=== PATIENT | female | born 1975 | race Caucasian/White ===

== ENCOUNTER 2021-06-13 15:20 | Outpatient (REF) | payer BC, SELFPAY ==
[2021-06-15 17:02] LABS: COVID-19 RT-PCR UVMMC Result Negative (Negative)
== END 2021-06-13 15:21 | disposition home or self-care (01) ==
LOC: LBN 15:20
PROVIDERS: Visit Provider Nurse Practitioner Family
DX: Z20.822 Contact with and (suspected) exposure to COVID-19 (principal); J06.9 Acute upper respiratory infection, unspecified
CPT/HCPCS: U0003

== ENCOUNTER 2024-09-03 00:21 | Outpatient (CLI) | payer OTHER, SELFPAY ==
--- OUTSIDE RECORDS SUMMARY | 2024-09-03 00:23 | XMS_ITS | Clinical Summary ---
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
--- OUTSIDE RECORDS SUMMARY | 2024-09-03 00:23 | XMS_ITS | Encounter Summary ---
Author Organization [facility] Address [address] [place] [address] Care Team Providers Care Gizzard Skin Remover Name Role Phone Unavailable Primary Care Provider Unavailabl e Encounter Details Date Type Department Care Team (Late st Contact Info) Description 06/14/2021 Lab Requisition [facility] Pathology & Laboratory Medicine - [facility] [address] [place] [address] Outr Resulting Lab, Provider Social History Tobacco Use Types Packs/Day Years Used Date Smoking Tobacco: Never Assessed Comments Unknown Sex and Gender Information Value Date Recorded Sex Assigned at Not on file Legal Sex Female 12:21 EST Gender Identity Not on file Sexual Orientation Not on file documented as of this encounter Plan of Treatment Not on file documented as of this encounter Procedures Procedure Name Priority Date/Time Associated Diagnosis Comments [facility] Today 06/13/2021 10:25 EST COVID-19 TESTING Routine 06/13/2021 10:2 5 EST documented in this encounter Results * COVID-19 TEST [facility] PCR (06/13/2021 10:25 EST) Swab 06/13/2021 10:2 5 EST 06/14/2021 16:46 EST us Provider Outr Resulting Lab MICROBIOLOGY - GENER AL ORDERABLES Final Result [facility] [address] [place] [address] * COVID-19 TESTING (06/13/2021 10:25 EST) COVID-19 rt-PCR Result Negative Negative 06/15/2021 16:56 EST [facility] Comment: This test has not been FDA cleared or approved. This test has been authorized by FDA under an EUA for use by authorized laboratories. This test has been authorized only for detection of nucleic acid from 2019-nCoV, not for any other viruses or pathogens. This test is only authorized for the duration of the declaration that circumstances exist justifying the authorization of emergency use of in vitro diagnostic tests for detection and/or diagnosis of 2019-nCoV under section 564(b)(1) of Act, 21 U.S.C ?? 360bbb-3(b) (1), unless the authorization is terminated or revoked sooner. Negative results do not preclude 2019-nCoV infection and should not be used as the sole basis for treatment or other patient management decisions. Negative results must be combined with clinical observations, patient history, and epidemiological information. This test was developed and its performance characteristics determined by [facility]. It has not been cleared or approved by the US Food and Drug Administration. FDA does not require this test to go through premarket FDA review. This test is used for clinical purposes. It should not be regarded as investigational or for research. This laboratory is certified under the Clinical Laboratory Improvement Amendments (CLIA) as qualified to perform high complexity clinical laboratory testing. This test is based on the CDC COVID-19 Emergency Use Authorization (EUA) assay, with minor modification as defined by the FDA Performed on the Poll Everywhereo 7 Pro RT-PCR System. Performing Lab [facility] 06/15/2021 16:56 EST [facility] Swab 06/13/2021 10:2 5 EST 06/14/2021 16:46 EST us Provider Outr Resulting Lab MICROBIOLOGY - GENER AL ORDERABLES Final Result [facility] [address] [place] [address] documented in this encounter Visit Diagnoses Not on filedocumented in this encounter
--- OUTSIDE RECORDS SUMMARY | 2024-09-03 00:23 | XMS_ITS | Referral Summary ---
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
--- NOTE | 2024-09-03 13:04 | DI.MAMMO_ITS ---
Exam(s) MAMMO SCREENING EXAM: MAMMO SCREENING CLINICAL HISTORY: Screening, Z12.31 TECHNIQUE: Mammograms were interpreted according to the usual protocol including computer analysis w [employer] CAD system, tomosynthesis and C-view imaging. COMPARISON: 2018 and 2019 FINDINGS: The breasts are composed of mainly fatty density , Breast Density category A. No suspicious masses or suspicious microcalcifications are seen. No skin thickening or abnormal axillary lymph nodes are seen. There has been no significant change from prior exams. IMPRESSION: BI-RADS Category 1, Negative mammogram Yearly screening mammography is recommended. Breast Density - Category A, fatty density. A negative radiographic report should not delay biopsy if a dominant or clinically suspicious mass is present. Up to ten percent of cancers are not identified on mammography. A negative report may reinforce clinical impression. Adenosis and dense breasts may obscure an underlying neoplasm. False positive reports average 6 to 10%. Patient will receive a letter notifying them of these results.
== END 2024-09-03 00:41 ==
LOC: DI 00:21
PROVIDERS: PCP Nurse Practitioner Family; Visit Provider Nurse Practitioner Family
DX: Z12.31 Encounter for screening mammogram for malignant neoplasm of breast (principal); R92.313 Mammographic fatty tissue density, bilateral breasts
CPT/HCPCS: 77063; 77067

== ENCOUNTER 2024-10-06 07:01 | Day surgery (SDC) | payer OTHER, SELFPAY ==
--- NOTE | 2024-10-05 05:53 | W.PM.DSUDISC ---
Date of service: 10/06/24 Discharge Plan Disposition Patient Disposition: Home Condition: Good Discharge Details Reason For Visit: screening colonoscopy Attending Provider: Ab Maldonado Primary Care Provider: Gemini Ellis Home Meds and New Rx's Prescriptions: Continued atorvastatin 10 mg tablet 10 mg PO DAILY Wegovy 0.25 mg/0.5 mL pen injector 0.25 mg subcut QWEEK Patient Comments: Per pt. has not started taking this medication 10/03/24 JW. Rx Instructions: administer weeks 1 through 4 of therapy lisinopril 20 mg tablet 20 mg PO DAILY multivitamin Tablet 1 tab PO DAILY Advil PM 200-38 mg tablet 2 cap PO QHS PRN Discontinued bisacodyl [Dulcolax (bisacodyl)] 5 mg tablet,delayed release (DR/EC) 5 mg PO ONCE Qty: 4 0RF Rx Instructions: Take per colonoscopy instructions provided by ordering providers office polyethylene glycol 3350 17 gram/dose powder 17 g PO ONCE Qty: 238 0RF Rx Instructions: Take per colonoscopy instructions provided by ordering providers office Discharge Instructions Instructions: Colon polyps Additional Instructions: Meagan, it was very nice to meet you today, and I hope you are comfortable through the colonoscopy. Everything went very smoothly. I did find and removed 2 polyps today. These were both small. One of these polyps is quite close to your anus, so I would expect to have a little bit of bleeding over your first few bowel movements. That is nothing to be alarmed about, and should clear up in about 48 hours. The reports from the polyp analysis will come back from the pathologist in about a week or 2, once my office has had information, we will be in touch with recommendations for future colonoscopies. If you need anything or have any questions in the meantime, please do not hesitate to ask. 1. If tolerated, consume a soft, low fiber diet for 1-2 days. 2[address] Do not drive, drink alcohol, operate machinery, make critical decisions, or do activities that require coordination or balance for 24 hours. 3. Because air was put into your colon during the procedure, expelling air from your rectum (passing gas or farting) is normal. 4. You may not have a bowel movement for 1-3 days because of the colonoscopy prep. This is normal. 5. Go directly to the emergency room if you notice any of the following: Develop chills (warm to touch), or if you have a thermometer and your temperature is above 101 Difficulty breathing or difficultly swallowing Persistent vomiting Severe abdominal pain, other than gas cramps Severe chest pain Black, tarry stools Any bleeding ? exceeding one tablespoon 6. Call your physician if the site where your intravenous was started becomes red, swollen, painful, and warm to touch. 7. Your physician has reviewed your pre-procedure medications. Please continue to take those medications as previously ordered. You will be given specific information/education regarding any changes to your medications before leaving. Activity:: Activity as Tolerated Diet:: As Tolerated Discharge Orders Discharge Orders: Discharge Order (Routine); Ordered 10/05/24 Ordered By: Ab Maldonado DS: Diagnosis Discharge Diagnosis (1) Encounter for screening colonoscopy: Status: Acute Asessment and Plan: Follow-up on polypectomy results
--- NOTE | 2024-10-05 05:55 | COLE_ITS ---
Date of service: 10/06/24 Time of Service: 09:17 Colonoscopy Report Date of procedure: 10/06/24 Pre-op diagnosis general: screening colonoscopy Post-op diagnosis procedure note: other (Colon polyps, diverticulosis) Procedure: colonoscopy with polypectomy Surgeon: Ab Maldonado Anesthesia Type: General:No Airway Estimated blood loss (mL): 5 Pathology: other (0.25 cm flat rectal polyp, less than 0.25 cm polyp at 85 cm) Complications: None Disposition: same day Indications: Meagan is a 48 year old woman who needs a screening colonoscopy Prep: Miralax/Dulcolax Procedure Start Time: :50 Procedure End Time: : Retraction Time: 13 Findings: Sigmoid diverticulosis, 0.25 cm flat rectal polyp, less than 0.25 cm polyp at 85 cm Procedure Description: After the induction of anesthesia, and with the patient in left lateral dec ubitus position, I began by performing an external anorectal exam.? Perineum and skin were normal, as was the anal verge.? There was no evidence of external hemorrhoids.? Next, I performed a digital rectal exam.? I did not appreciate any abnormal findings.? Next, I advanced a colonoscope into the rectal vault.? I performed retroflexion.? Just above the anal column was a 0.25 cm flat polyp. This was removed with cold forceps with minimal bleeding. Using insufflation, I then advanced the colonoscope beyond the rectal folds and into the sigmoid colon before advancing towards the cecum.? The quality of the prep was adequate.? The scope was noted to be in the cecum by identification of the ileocecal valve and appendiceal orifice.? I then began withdrawing the colonoscope using repeated irrigation as necessary for full evaluation of the colonic mucosa. Around cm from the anal verge I identified a 0.25 cm polyp. ?It appeared flat in character. ?I was able to remove this with a cold forcep polypectomy. ?I examined the site, and there was minimal bleeding. ?Once this was completed, I continued to withdraw the scope and examine the remainder of the colonic mucosa.?Once the scope was withdrawn to the level of the rectum, great care was taken to examine portions of the rectal folds.? Finally, the scope was withdrawn and the patient was brought to the same-day surgery recovery unit as the anesthetic wore off. ?The findings and instructions were shared with the patient prior to discharge. [place] Bowel Prep G[place]rie Bowel Prep Right Colon: 2 Left Colon: 2 Transverse Colon: 2 Total Score: 6
[2024-10-06 07:16] VITALS: BP 118/83; PULSE 68; RESP 20; TEMP 36.3; O2SAT 95
[2024-10-06] MEDS: Lactated Ringers 1,000 ML 80 ML IV (07:31)
[2024-10-06 07:32] VITALS: BP 118/83; PULSE 68; RESP 20; TEMP 36.3; O2SAT 95
--- NOTE | 2024-10-06 08:12 | W.ANESPRE ---
General Info Date of Service Date Performed: 10/06/24 Height: 5 ft 3 in Weight: 94 kg Body Mass Index (BMI): 36.7 Surgical Procedure: Operation Date: 10/06/24 08:35 Proposed Procedure Side Surgeon p Edward Maldonado MD Meds Allergies and Home Medications Allergies Allergy/AdvReac Type Severity Reaction Status Date / Time No Known Allergies Allergy Verified 10/06/24 07:15 Home Medication ?Medication ?Instructions ?Recorded ibuprofen-diphenhydramine citrate 2 cap PO QHS PRN 08/14/24 200 mg-38 mg tablet (Advil PM) multivitamin 1 tab PO DAILY 08/14/24 atorvastatin 10 mg tablet 10 mg PO DAILY 09/18/24 lisinopril 20 mg tablet 20 mg PO DAILY 09/18/24 semaglutide (weight loss) 0.25 0.25 mg subcut QWEEK 09/18/24 mg/0.5 mL subcutaneous pen injector ([email or web address]) Current Visit Medications: Current Medications Generic Name Dose Route Start Last Admin Trade Name Freq PRN Reason Stop Dose Admin Ringer's Solution 1,000 mls @ 80 mls/hr 10/06/24 06:00 10/06/24 07:31 IV 10/06/24 23:59 80 mls/hr INFUSION SILVANO Administration IV Miscellaneous Supplies 1 each 10/06/24 06:00 Iv Access IV 10/06/24 23:59 DIRECTED SILVANO Ondansetron HCl 4 mg 10/05/24 05:56 Ondansetron 4 Mg/2 Ml Vial IVP 11/04/24 05:55 Q4H PRN PRN Nausea / Vomiting Sodium Chloride 0 ml 10/06/24 06:00 Normal Saline Flush 10 Ml Syr IV 10/06/24 23:59 PRN PRN Sodium Chloride 0 ml 10/06/24 06:00 Normal Saline 10 Ml Vial IJ 10/06/24 23:59 DIRECTED PRN Sterile Water 0 ml 10/06/24 06:00 Water,Injection,Sterile 10 Ml Vial IJ 10/06/24 23:59 DIRECTED PRN PFSH Active Problems Active Problems: Problem Status Onset Code Encounter for screening colonoscopy Acute Z12.11 Menopausal symptoms Acute N95.1 Nicotine dependence Acute F17.200 Hemorrhoids Acute K64.9 Surgical History Surgical History History of hysterectomy History of tubal ligation History of endometrial ablation History of delivery History of appendicostomy Tobacco Smoking/Tobacco Use Status: Current every day Tobacco Type: cigarettes Smoking packs per day: 0.5 Smoking cigarettes per day: 10.0 Alcohol Alcohol Intake: current Alcohol intake frequency: a few times a week Substance Use Substance use: Socially Substance use type: marijuana Details: used marijuana yesterday Vital Signs and Lab Results Vital Signs Most Recent Vital Signs in EMR: Most Recent Vital Signs Temp Pulse Resp BP Pulse Ox 36.3 C L 68 20 118/83 95 10/06/24 07:32 10/06/24 07:32 10/06/24 07:32 10/06/24 07:32 10/06/24 07:32 Lab Results Blood Type / Crossmatch: No Data to Display Complete Blood Count: No Data to Display Complete Metabolic Panel: No Data to Display Liver Function Panel: No Data to Display Coagulation Panel: No Data to Display Cardiac Panel: No Data to Display Arterial Blood Gas: No Data to Display Venous Blood Gas: No Data to Display Pancreas Panel: No Data to Display Thyroid Panel: No Data to Display Infectious Disease: No Data to Display Blood Cultures: No Data to Display Toxicology Panel: No Data to Display Panel: No Data to Display Anesthesia Assessment and Plan Anesthesia History Personal History: No History of Anesthesia Complications Family History: No Family History of Anesthesia Complications Exercise Tolerance Exercise Tolerance: Metabolic Equivalents>4 Cardiac & Pulmonary Exam Cardiac Exam: Normal S1/S2 Heart Sounds Pulmonary Exam: Rhonchi Present Cardiac and Pulmonary Comment:: Albuterol planned Implantable Cardiac Device Does patient have a Pacemaker or an ICD?: No Airway Exam Known Difficult Airway: No Mallampati Class: 2 Mouth Opening: Normal (> 3cm) Thyromental Distance: Greater than 3 cm Neck Range of Motion: Full ROM Neck Circumference: Normal Teeth Condition: Normal Dentition ASA Classification ASA Score: ASA 2 Emergency Case?: No NPO Status NPO Status: NPO Clears >2 hours, Solids >8 hours Status Status: History of Hysterectomy Anesthesia Plan Resuscitation Status: Full Code Anesthesia Technique: General Anesthesia Airway Planned: Natural Airway Monitors Used: Standard Monitors
[2024-10-06 08:42] VITALS: BMI 36.7
--- NOTE | 2024-10-06 08:52 | BOWEL_PTH ---
PATIENT: Meagan Bunch I LOC: [facility] U#:[id number] AGE/SX: 48/F ROOM: RE10/06/[address]: Ab Maldonado MD : 1975 BED: DIS: 10/06/2024 SPEC #: [id number] RECD: 10/06/24 13:06 STATUS: PATSY REQ #: [id number] NORIS: 10/06/24 08:[address]: Ab Maldonado DEPT: Surgical Specimen RECD BY: Shantell Goodman ENTERED: 10/06/24 13:07 SP TYPE: Bowel OTHR DR: Gemini Ellis Tissues: 1 - BIOPSY BOWEL 2 - BIOPSY BOWEL Procedures: GROSS AND MICRO LEVEL 4 Comments: [id number]
[2024-10-06 09:15] VITALS: BP 115/80; PULSE 60; RESP 16; TEMP 36; O2SAT 98
--- NOTE | 2024-10-06 09:22 | W.ANESPOSTOP ---
Postoperative Evaluation Date, Time and Location Date Performed: 10/06/24 Time Performed: 09:22 Patient Location: Day Surgery Unit Vital Signs Most Recent Imported Vital Signs: Most Recent Vital Signs Temp Pulse Resp BP Pulse Ox 36.3 C L 68 20 118/83 95 10/06/24 07:32 10/06/24 07:32 10/06/24 07:32 10/06/24 07:32 10/06/24 07:32 Assessment Mental Status: Arousable with meaningful communication Airway and Respiratory Function: Patent airway with normal (patient baseline) respiratory exam Cardiovascular Function: Hemodynamically Stable Hydration Status: Adequately Hydrated Nausea & Vomiting: No Nausea or Vomiting Pain: Pt. Denies Any Pain Peripheral Nerve Block: Patient did not receive a nerve block
[2024-10-06 09:45] VITALS: BP 117/77; PULSE 57; RESP 18; TEMP 36.2; O2SAT 98
== END 2024-10-06 10:00 | disposition home or self-care (01) ==
LOC: SUR 07:01
PROVIDERS: PCP Nurse Practitioner Family; Visit Provider Surgery
PROC: 0DJD8ZZ Inspection of Lower Intestinal Tract, Via Natural or Artificial Opening Endoscopic (ICD-10-PCS; CPT 45378; principal; 2024-10-06 08:30)
DX: Z12.11 Encounter for screening for malignant neoplasm of colon (principal); K63.5 Polyp of colon; K57.30 Diverticulosis of large intestine without perforation or abscess without bleeding; K62.1 Rectal polyp
CPT/HCPCS: 45380; 88305; J2003; J2704